=== PATIENT | male | born 1985 | race Caucasian/White ===

== ENCOUNTER → 2018-02-16 | Outpatient (CLI) | payer OTHER, MEDICAID ==
[~2018-02-16] MED LIST: GADOBUTROL 10 ML VIAL IVP ONE
== END ==
LOC: FIMAGING 15:09
PROVIDERS: ATTEND Internal Medicine
DX: R46.2 Strange and inexplicable behavior (principal)
CPT/HCPCS: 70553; A9585

== ENCOUNTER 2018-10-18 19:01 | Emergency (ER) | payer OTHER, MEDICAID | END 2018-10-18 21:33 | disposition home or self-care (01) ==

== ENCOUNTER → 2018-10-18 | Outpatient (CLI) | payer OTHER, MEDICAID | LOC: GIMAGING 18:06 ==

== ENCOUNTER → 2018-10-25 | Outpatient (CLI) | payer OTHER, MEDICAID | LOC: FIMAGING 13:15 ==